=== PATIENT | male | born 1975 | race Two or more races ===

== ENCOUNTER → 2018-04-06 | Outpatient (CLI) | payer OTHER | LOC: CIMAGING 16:18 | PROVIDERS: ATTEND Family Medicine | DX: M79.89 Other specified soft tissue disorders (principal); M79.605 Pain in left leg | CPT/HCPCS: 93971-PO ==

== ENCOUNTER → 2018-11-17 | Outpatient (CLI) | payer OTHER | LOC: EMCIMAGING 12:22 ==

== ENCOUNTER → 2018-11-17 | Outpatient (CLI) | payer OTHER | LOC: EMCIMAGING 15:16 ==